=== PATIENT | female | born 1955 | race Caucasian/White ===

== ENCOUNTER 2020-11-15 10:10 | Observation (INO) | payer OTHER, SELFPAY ==
[~2020-11-15] VITALS: Ht 162.6 cm; Wt 126.6 kg
[~2020-11-15 10:10] MED LIST: ATOR20TA PO; LORA10OD44 PO; LOSA50TA66 PO; ORE25 PO; TRAM50TA3 PO
[2020-11-15 10:15] VITALS: BP 162/79
--- NOTE | 2020-11-15 10:21 | NUR ---
PT AMBULATED TO BED 6.
--- NOTE | 2020-11-15 10:43 | NUR ---
Dr. Dietz is evaluating the patient at bedside.
[2020-11-15] MEDS ORDERED: CYCLOBENZAPRINE 10 MG TAB PO ONE (10:50)
[2020-11-15] MEDS ORDERED: ASPIRIN 325 MG TAB PO ONE (10:50)
[2020-11-15] MEDS ORDERED: ACETAMINOPHEN EXTRA STRENGTH 500 MG TAB PO ONE (10:50)
--- NOTE | 2020-11-15 10:54 | NUR ---
65 Y/O F BIB SELF FROM HOME, PATIENT PRESENTS TO ED WITH L SHOULDER PAIN THAT RADIATES DOWN UPPER EXTREMITY AND TO UPPER L BACK. PT STATES PAIN IS CHRONIC FOR A FEW YEARS, BUT HAS WORSENED 2 WEEKS AGO. DENIES N/V/D; SKIN IS PINK/WARM/DRY; AAOX4 WITH EVEN AND STEADY GAIT; LUNGS CLEAR BL; HR EVEN AND REGULAR; PT DENIES ANY FEVER, CP, SOB, OR COUGH AT THIS TIME; PATIENT STATES PAIN OF 10/10 AT THIS TIME; VSS; PATIENT POSITIONED FOR COMFORT; HOB ELEVATED; BEDRAILS UP X2; BED DOWN. ER MD MADE AWARE OF PT STATUS. PMH: DM2, HTN NKA
--- NOTE | 2020-11-15 11:02 | NUR ---
PT WHEELCHAIR ASSIST TO XRAY
--- NOTE | 2020-11-15 11:10 | NUR ---
Patient returned from x-ray. RN reevaluating the patient at bedside.
--- NOTE | 2020-11-15 12:04 | NUR ---
LABS AND ARMANDO WERE DRAWN AT BEDSIDE. GIVEN TO TONG AGARWAL AT [employer] IN[employer].
[2020-11-15 12:45] LABS: ANION GAP 16.4 (8-16); CARBON DIOXIDE 26.2 mmol/L (21-32); POTASSIUM 4.6 mmol/L (3.5-5.1); TOTAL BILIRUBIN 0.6 mg/dL (0.0-1.0)
[2020-11-15] MEDS ORDERED: DICL-342 PO (12:51)
[2020-11-15] MEDS ORDERED: OMEP20EC11 PO (12:51)
[2020-11-15] MEDS ORDERED: METF500T PO (12:51)
[2020-11-15] MEDS ORDERED: ERGO-30 PO (12:52)
[2020-11-15] MEDS ORDERED: MORPHINE SULFATE 4 MG/ML SYR IVP ONE (13:05)
[2020-11-15] MEDS ORDERED: INSULIN LISPRO SLIDING SCALE 100 UNITS/ML VIAL SUBQ PRN (14:20)
[2020-11-15] MEDS ORDERED: ACETAMINOPHEN 325 MG TAB PO PRN (14:20)
[2020-11-15] MEDS ORDERED: DEXTROSE 50% 50 ML SYR IVP PRN (14:20)
[2020-11-15] MEDS ORDERED: MORPHINE SULFATE 2 MG/ML SYR IVP PRN (14:20)
[2020-11-15] MEDS ORDERED: ONDANSETRON 4 MG/2 ML VIAL IVP PRN (14:20)
--- NOTE | 2020-11-15 16:28 | NUR ---
Patient appears to be resting comfortably in bed. Vital Signs within normal limits. Respirations even and unlabored.
[2020-11-15] MEDS: BLOOD GLUCOSE MONITORING 1 DEV DEV FS SCH ×2 (16:45→20:38)
--- NOTE | 2020-11-15 16:56 | NUR ---
Patient will be admitted to care of YRIS IQBAL. Admited to TELEMETRY. Will go to room 106A. Belongings list completed. Report to POLLO MARTIN.
[2020-11-15 17:30] VITALS: BP 150/54
--- NOTE | 2020-11-15 17:30 | NUR ---
RECEIVED REPORT FROM ER NURSE. PT ARRIVED TO UNIT VIA GURNEY. A&OX4, ALERT AND AWAKE. ON RA WITH BREATHING UNLABORED. PT IS AMBULATORY INDEPENDENTLY. GAIT WAS STEADY. SKIN IS WARM, DRY, AND INTACT. IV IS IN THE LEFT HAND 22 GAUGE SALINE LOCKED. PT IS STABLE. DENIES CHEST PAIN. SON AT BEDSIDE TALKING WITH PT.
--- NOTE | 2020-11-15 19:20 | NUR ---
ENDORSED PT TO HEART COORDINATOR NURSE FOR CONTINUITY OF CARE. PT IS STABLE AT THIS TIME. PLAN OF CARE DISCUSSED.
--- NOTE | 2020-11-15 19:24 | NUR ---
FOUND PT ON ROOM AIR WITH SPO2 OF 96%. PT IS IN NO RESPIRATORY DISTRESS AT THIS TIME. WILL CONTINUE TO MONITOR PT.
--- NOTE | 2020-11-15 19:35 | NUR ---
RECEIVED REPORT FROM DAYSHIFT NURSES AT PATIENTS BEDSIDE. PT ALERT AND ORIENTED, TAJIK SPEAKING, MAKES NEEDS KNOWN, FOLLOWS COMMANDS. FAMILY MEMBERS AT BEDSIDE. PT ON ROOM AIR. CONNECTED TO CONTINUOUS CARDIAC MONITORING. LEFT HAND 22G, FLUSHED AND PATENT, ASYMPTOMATIC. SALINE LOCKED. PT CONTINENT, ABLE TO AMBULATE TO RESTROOM. PT REPORTS HAVING PAIN AT LEFT SHOULDER THAT RADIATES TO MID BACK. 7/10, THROBBING AND ACHING. DENIES SHORTNESS OF BREATH, HAS DINNER AT BEDSIDE FROM OUTSIDE [employer]. SKIN WARM AND DRY, INTACT, AFEBRILE. PT AND FAMILY ORIENTED TO TREATMENT PLAN, PATIENT ADVISED TO CALL NURSE WHEN SHE NEEDS TO USE THE RESTROOM. PT VERBALIZES UNDERSTANDING OF PLAN/INSTRUCTIONS. BED LOCKED AND IN LOWEST POSITION, SIDE RAILS UP, CALL LIGHT IN HAND. WILL CONTINUE TO MONITOR.
[2020-11-15 20:00] VITALS: BP 123/49
--- NOTE | 2020-11-15 21:10 | NUR ---
PT REPORTS PAIN HAS IMPROVED, REPORTS 4/10. BLOOD SUGAR WITHIN RANGE, NO COVERAGE NEEDED. SAFETY MEASURES IN PLACE. ALL NEEDS MET AT THIS TIME.
--- NOTE | 2020-11-15 22:45 | NUR ---
PLACED PT ON CPAP. PT IS DX WITH SLEEP APNEA. FAMILY MEMBERS AT BEDSIDE STATED PT USES MACHINE TO SLEEP AT NIGHT BUT DO NOT KNOW THE CPAP LEVEL.
[2020-11-16] VITALS: BP 135/50
--- NOTE | 2020-11-16 00:57 | NUR ---
PT RESTING WELL IN BED, OPENS EYES TO LIGHT TOUCH. CPAP MASK SECURED, CONTINUOUS MONITORING IN PLACE, SP02 95%, SB ON MONITOR. SAFETY MEASURES IN PLACE, CALL LIGHT IN HAND.
--- NOTE | 2020-11-16 02:28 | NUR ---
PT NOTIFIED RN THAT SHE NEEDS TO VOID. RT AT BEDSIDE, CPAP ON STANDBY. PT HAS STEADY GAIT. PT VOIDED X1, BACK IN BED WITHOUT INCIDENT. REAPPLIED CPAP MASK. PT NOT IN DISTRESS, SP02 100%. BED LOCKED AND SIDERAILS UP, CALL LIGHT WITHIN REACH.
[2020-11-16 04:00] VITALS: BP 130/68
--- NOTE | 2020-11-16 04:22 | NUR ---
PT RESTING WELL, SINUS YUVAL ON MONITOR, PT WAS STARTLED WHEN I WOKE HER TO TAKE VITALS, HR INCREASED BUT RETURNED TO SINUS YUVAL SHORTLY AFTER. ALL OTHER VITALS WITHIN RANGE. PT TOLERATING CPAP MASK WELL. DENIES PAIN, ABLE TO SELF TURN. BED LOCKED AND IN LOWEST POSITION, SIDE RAILS UP. WILL CONTINUE TO MONITOR.
--- NOTE | 2020-11-16 05:11 | NUR ---
PT OFF FROM BiPAP AT THIS TIME. PT ON ROOM AIR WITH SPO2 OF 97%.
[2020-11-16] MEDS: BLOOD GLUCOSE MONITORING 1 DEV DEV FS SCH ×2 (06:37→11:30)
[2020-11-16 07:08] LABS: ALBUMIN 3.4 g/dL (3.4-5.0); ANION GAP 9.6 (8-16); CARBON DIOXIDE 31.1 mmol/L (21-32); MAGNESIUM 2.2 mg/dL (1.8-2.4); POTASSIUM 3.7 mmol/L (3.5-5.1); TOTAL BILIRUBIN 0.3 mg/dL (0.0-1.0)
--- NOTE | 2020-11-16 07:10 | NUR ---
BLOOD SUGAR WITHIN RANGE, NO COVERAGE NEEDED.
[2020-11-16 07:25] LABS: BASOPHILS % (AUTO) 0.3 % (0.0-2.0); EOSINOPHILS # (AUTO) 0.2 K/uL (0-0.4); EOSINOPHILS % (AUTO) 1.9 % (0.0-4.0); HEMOGLOBIN 12.8 g/dL (12.0-16.0); LYMPHOCYTES # (AUTO) 2.3 K/uL (2.5-16.5); LYMPHOCYTES % (AUTO) 22.6 % (20.5-51.1); MEAN CORPUSCULAR HEMOGLOBIN 28 pg (27-31); MEAN CORPUSCULAR HGB CONC 33 g/dL (33-37); MEAN CORPUSCULAR VOLUME 86.5 fL (80-94); MONOCYTES # (AUTO) 0.7 K/uL (0.8-1.0); MONOCYTES % (AUTO) 7.4 % (1.7-9.3); NEUTROPHILS # (AUTO) 6.8 K/uL (1.8-7.7); NEUTROPHILS % (AUTO) 67.8 % (42.2-75.2); PLATELET COUNT (AUTO) 375 K/uL (140-450); RED BLOOD CELL COUNT(AUTO) 4.51 MIL/uL (4.20-5.40)
--- NOTE | 2020-11-16 07:30 | NUR ---
RECEIVED PT AAOX4. NO SOB NOTED. NO C/O PAIN AT THIS TIME. INSTRUCTED PT TO CALL FOR ASSISTANCE, CALL LIGHT WITHIN REACH, PT VERBALIZED UNDERSTANDING.
--- NOTE | 2020-11-16 07:30 | NUR ---
ENDORSED TO DAYSHIFT NURSE. PT AWARE, REPORTS SOME DISCOMFORT AT LEFT SHOULDER BUT DOES NOT WANT PAIN MEDS AT THIS TIME. ALL NEEDS MET, VITALS STABLE. PT ON ROOM AIR WHEN AWAKE.
[2020-11-16 08:00] VITALS: BP 143/81
--- NOTE | 2020-11-16 08:54 | NUR ---
PATIENT HAS BEEN SCREENED AND CATEGORIZED LOW NUTRITION RISK. PATIENT WILL BE SEEN WITHIN 7 DAYS OF ADMISSION. 11/22/[address]
[2020-11-16] MEDS ORDERED: ATORVASTATIN 20 MG TAB PO SCH (09:00)
[2020-11-16] MEDS ORDERED: PANTOPRAZOLE 40 MG TABEC PO SCH (09:00)
[2020-11-16] MEDS ORDERED: ENOXAPARIN 40 MG/0.4 ML SYR SUBQ SCH (09:00)
[2020-11-16] MEDS ORDERED: hydroCHLOROthiazide 25 MG TAB PO SCH (09:00)
[2020-11-16] MEDS ORDERED: ASPIRIN 81 MG TAB.CHEW PO SCH (09:00)
[2020-11-16] MEDS ORDERED: LOSARTAN 50 MG TAB PO SCH (09:00)
--- NOTE | 2020-11-16 09:00 | NUR ---
ECHOCARDIOGRAM ON GOING AT THE BEDSIDE.
[2020-11-16] MEDS ORDERED: IBUPROFEN 400 MG TAB PO SCH (12:00)
[2020-11-16] MEDS ORDERED: ASPI-1129 PO (12:24)
--- NOTE | 2020-11-16 14:10 | NUR ---
DISCHARGE INSTRUCTIONS GIVEN TO PT AND SON SRIRAM AT THE BEDSIDE WHICH VERBALIZED FULL UNDERSTANDING OF THE THE INSTRUCTIONS GIVEN AND THE NEED TO FOLLOW UP WITH OWN PCP IN 7 DAYS. PT AND SON IS AWARE THAT [facility] WAS SEND THEIR PREFERRED PHARM[facility]Y, PER SRIRAM THEY ALREADY GOT A CALL THAT IT'S READY. ARM BANDS AND IV REMOVED, CANNULA TIP INTACT. PT IS WHEELED OUT TO THE FRONT IN STABLE CONDITION. NO SOB NOTED. NO C/O CHEST PAIN. PT IS D/C HOME WITH SON.
== END 2020-11-16 14:10 | disposition home or self-care (01) ==
LOC: MED 10:10 → MTU 14:24
PROVIDERS: ADMIT Internal Medicine; ATTEND Internal Medicine
DX: R07.89 Other chest pain (principal); Z20.822 Contact with and (suspected) exposure to COVID-19; I10 Essential (primary) hypertension; E11.9 Type 2 diabetes mellitus without complications; E78.00 Pure hypercholesterolemia, unspecified; M25.512 Pain in left shoulder; G47.33 Obstructive sleep apnea (adult) (pediatric); E66.01 Morbid (severe) obesity due to excess calories; R94.31 Abnormal electrocardiogram [ECG] [EKG]; R20.0 Anesthesia of skin; Z79.84 Long term (current) use of oral hypoglycemic drugs; Z68.42 Body mass index [BMI] 45.0-49.9, adult; Z79.899 Other long term (current) drug therapy
CPT/HCPCS: 36415; 71045; 72125; 73030; 80053; 82550; 82553; 83690; 83735; 83880; 84484; 85025; 85379; 87081; 87426; 93005; 94760; 96372; 96374; 99285; G0378; J1650; J1815; J2270